=== PATIENT | male | born 1960 | race Caucasian/White ===

== ENCOUNTER 2022-02-23 13:47 | Inpatient (IN) | payer OTHER ==
[~2022-02-23] VITALS: Ht 193 cm; Wt 145.9 kg
[~2022-02-23 13:47] MED LIST: ALTA10CA3 PO; AMAR1TAB6 PO; ANOR1AER IN; ASPI81TA26 PO; ASPI81TA4 PO; BACTDSTA PO; BISO5TAB14 PO; BISO5TAB5 PO; BISO5TAB54 PO; CLON1TAB PO; CLON1TAB8 PO; DEPA500T2 PO; DEPAKOTE PO; DIVALPROEX PO; FLUO20CA22 PO; FLUO20CA8 PO; FLUR30CA PO; FOLI1TAB11 PO; GABA300C2 PO; GLIM4TAB PO; GLIM4TAB5 PO; HYDR-727 PO; HYDR50TA2 PO; HYDR50TAB PO; LACH12LO TOP; LAMO200T3 PO; LANTUS SC; MAGN400T35 PO; METF1000 PO; METF10004 PO; MULTTAB4 PO; NEOM28OI TOP; NICO21PAT TD; OMEP20CA3 PO; PRIL20CA PO; PROZ20CA11 PO; PROZ40CA PO; QUET50TA4 PO; RAMI10CA PO; RISP2TAB32 PO; RISP3TAB2 PO; SERO1TAB PO; SEROQUEL XR PO; SIMV10TA2 PO; SIMV10TA21 PO; TRAZ100T2 PO; TRAZ1TAB14 PO; VITMTA PO; ZOCO10TA PO; ZYPR10TA PO; [UNRECOGNIZED DRUG - OTHER] INH; [UNRECOGNIZED DRUG - OTHER] TOP; [UNRECOGNIZED DRUG - REMARK] PO; glucophage; glucophage PO; hctz PO
[2022-02-23 14:46] LABS: HEMATOCRIT 42.8 % (42.0-52.0); HEMOGLOBIN 14.9 g/dl (13.5-17.5); MEAN CORPUSCULAR HEMOGLOBIN 31.4 pg (27.0-33.0); MEAN CORPUSCULAR HGB CONC 34.8 g/dl (32.0-36.5); MEAN CORPUSCULAR VOLUME 90.3 fl (80.0-96.0); PLATELET COUNT, AUTOMATED 245 10^3/uL (150-450); RED BLOOD COUNT 4.74 10^6/uL (4.30-6.10); WHITE BLOOD COUNT 12.3 10^3/uL (4.0-10.0)
[2022-02-23 15:17] LABS: ACETAMINOPHEN LEVEL < 2.0 UG/ML (10.0-30.0); ALBUMIN 3.9 GM/DL (3.2-5.2); ALT/SGPT 29 U/L (12-78); BILIRUBIN,DIRECT < 0.1 MG/DL (0.0-0.2); BILIRUBIN,TOTAL 0.3 MG/DL (0.2-1.0); BLOOD UREA NITROGEN 18 MG/DL (7-18); CALCIUM LEVEL 9.7 MG/DL (8.8-10.2); CARBON DIOXIDE LEVEL 25 MEQ/L (21-32); CHLORIDE LEVEL 101 MEQ/L (98-107); CREATININE FOR GFR 1.28 MG/DL (0.70-1.30); ETHYL ALCOHOL (ETHANOL) < 0.003 % (0.000-0.010); GLOMERULAR FILTRATION RATE > 60.0 (>49); GLUCOSE, FASTING 107 MG/DL (70-100); POTASSIUM SERUM 4.6 MEQ/L (3.5-5.1); SALICYLATE LEVEL 4.3 MG/DL (5.0-30.0); SODIUM LEVEL 134 MEQ/L (136-145); TOTAL PROTEIN 7.4 GM/DL (6.4-8.2)
[2022-02-23 15:21] LABS: RSV AMPLIFICATION NEGATIVE (NEGATIVE)
[2022-02-23 15:26] LABS: AMPHETAMINES LEVEL URINE NEGATIVE (NEGATIVE); BARBITURATES URINE NEGATIVE (NEGATIVE); BENZODIAZEPINES URINE NEGATIVE (NEGATIVE); CANNABINOIDS URINE POSITIVE (NEGATIVE); COCAINE METABOLITE URINE NEGATIVE (NEGATIVE); METHADONE URINE NEGATIVE (NEGATIVE); OPIATES URINE NEGATIVE (NEGATIVE); PHENCYCLIDINE URINE NEGATIVE (NEGATIVE)
[2022-02-23] MEDS: INSULIN LISPRO (NovoLOG) PER UNIT SC SCH (17:30)
[2022-02-23] MEDS ORDERED: TRUL10IN SC (17:42)
[2022-02-23] MEDS ORDERED: METF-877 PO (17:42)
[2022-02-23] MEDS ORDERED: RISP-9 PO (17:42)
[2022-02-23] MEDS ORDERED: FURO20TA2 PO (17:42)
[2022-02-23] MEDS ORDERED: QUET100T2 PO (17:42)
[2022-02-23] MEDS ORDERED: KLON1TAB PO (17:42)
[2022-02-23] MEDS ORDERED: LISI40TA4 PO (17:42)
[2022-02-23] MEDS ORDERED: BASA100I SC (17:42)
[2022-02-23] MEDS ORDERED: SIMV20TA22 PO (17:42)
[2022-02-23] MEDS ORDERED: LAMI1TAB9 PO (17:42)
[2022-02-23] MEDS ORDERED: OMEP-173 PO (17:42)
[2022-02-23] MEDS ORDERED: OLANZapine ORAL DISINTEGRATING TAB 5MG PO ONE (20:05)
[2022-02-23] MEDS ORDERED: LORazepam 2 MG TAB PO ONE ×2 (20:30→22:50)
[2022-02-23] MEDS ORDERED: INSULIN LISPRO (NovoLOG) PER UNIT SC SCH (21:00)
[2022-02-23 21:18] LABS: AMPHETAMINES LEVEL URINE NEGATIVE (NEGATIVE); BARBITURATES URINE NEGATIVE (NEGATIVE); BENZODIAZEPINES URINE NEGATIVE (NEGATIVE); CANNABINOIDS URINE POSITIVE (NEGATIVE); COCAINE METABOLITE URINE NEGATIVE (NEGATIVE); METHADONE URINE NEGATIVE (NEGATIVE); OPIATES URINE NEGATIVE (NEGATIVE); PHENCYCLIDINE URINE NEGATIVE (NEGATIVE)
[2022-02-23] MEDS ORDERED: lisinopriL 40MG TAB PO ONE (22:50)
[2022-02-24] MEDS ORDERED: NICOTINE 21MG/24HR 1 EA TRANSDERMAL TD ONE (07:45)
[2022-02-24] MEDS ORDERED: metFORMIN (GLUCOPHAGE) 1000MG TABLET PO SCH (08:00)
[2022-02-24] MEDS ORDERED: OMEPRAZOLE 20MG CAP PO SCH (09:00)
[2022-02-24] MEDS ORDERED: QUEtiapine FUMARATE 100 MG TAB PO SCH (09:00)
[2022-02-24] MEDS ORDERED: risperiDONE 2 MG TAB PO SCH (09:00)
[2022-02-24] MEDS ORDERED: lisinopriL 40MG TAB PO SCH (09:00)
[2022-02-24] MEDS ORDERED: lamoTRIgine 100MG TAB PO SCH (09:00)
[2022-02-24] MEDS ORDERED: SIMVASTATIN 20 MG TAB PO SCH (09:00)
[2022-02-24] MEDS ORDERED: FUROSEMIDE 20 MG TAB PO SCH (09:00)
[2022-02-24] MEDS ORDERED: FLUoxetine 20MG CAP PO SCH (09:00)
[2022-02-24] MEDS ORDERED: bisoproloL fumarate 5 MG TAB PO SCH (09:00)
[2022-02-24] MEDS: INSULIN LISPRO (NovoLOG) PER UNIT SC SCH ×4 (09:17→21:00)
[2022-02-24] MEDS ORDERED: cloNIDine 0.2 MG TAB PO ONE (14:25)
[2022-02-24] MEDS ORDERED: MAALOX 30 ML SUSP *UDC PO PRN (15:00)
[2022-02-24] MEDS ORDERED: GLUCOSE 4GM CHEW TABLET PO PRN (15:00)
[2022-02-24] MEDS ORDERED: MOM 30ML SUSPENSION UDC PO PRN (15:00)
[2022-02-24] MEDS ORDERED: NICOTINE 21MG/24HR 1 EA TRANSDERMAL TD PRN (15:00)
[2022-02-24] MEDS ORDERED: traZODone 50 MG TAB PO PRN (15:00)
[2022-02-24] MEDS ORDERED: GLUCAGON INJ 1MG VIAL SC PRN (15:00)
[2022-02-24] MEDS ORDERED: LEVEMIR (INSULIN DETEMIR) 1 UNITS/0.01ML SC ONE (15:00)
[2022-02-24] MEDS ORDERED: clonazePAM 1 MG TAB PO PRN (15:20)
[2022-02-24] MEDS ORDERED: HOME MED LIST COMPLETE! XX SCH (16:15)
[2022-02-24] MEDS ORDERED: FLUO20CA22 PO (16:38)
[2022-02-24] MEDS: GLIMEPIRIDE 2 MG TAB PO SCH (17:30)
[2022-02-24 17:43] VITALS: BP 137/69
[2022-02-24] MEDS: metFORMIN (GLUCOPHAGE) 1000MG TABLET PO SCH (18:54)
[2022-02-24] MEDS: QUEtiapine FUMARATE 100 MG TAB PO SCH (21:35)
[2022-02-24] MEDS: risperiDONE 2 MG TAB PO SCH (21:35)
[2022-02-24] MEDS: lamoTRIgine 100MG TAB PO SCH (21:35)
[2022-02-24] MEDS: LEVEMIR (INSULIN DETEMIR) 1 UNITS/0.01ML SC SCH (21:44)
[2022-02-24] MEDS: FORMOTEROL FUMARATE 20 MCG/2 ML INHALATION SOLUTION (PERFOROMIST) INH SCH (22:00)
[2022-02-25 06:26] VITALS: BP 138/63
[2022-02-25] MEDS: GLIMEPIRIDE 2 MG TAB PO SCH ×2 (06:37→17:21)
[2022-02-25] MEDS: INSULIN LISPRO (NovoLOG) PER UNIT SC SCH ×4 (06:41→21:00)
[2022-02-25] MEDS: FORMOTEROL FUMARATE 20 MCG/2 ML INHALATION SOLUTION (PERFOROMIST) INH SCH ×2 (08:04→20:00)
[2022-02-25] MEDS ORDERED: hydroCHLOROthiazide 12.5 MG CAPSULE PO SCH (09:00)
[2022-02-25] MEDS: ASPIRIN 81MG ENTERIC TABLET PO SCH (09:24)
[2022-02-25] MEDS: FUROSEMIDE 20 MG TAB PO SCH (09:25)
[2022-02-25] MEDS: lamoTRIgine 100MG TAB PO SCH ×2 (09:25→21:25)
[2022-02-25] MEDS: FLUoxetine 20MG CAP PO SCH (09:25)
[2022-02-25] MEDS: OMEPRAZOLE 20MG CAP PO SCH (09:25)
[2022-02-25] MEDS: lisinopriL 40MG TAB PO SCH (09:25)
[2022-02-25] MEDS: QUEtiapine FUMARATE 100 MG TAB PO SCH ×2 (09:25→21:25)
[2022-02-25] MEDS: risperiDONE 2 MG TAB PO SCH ×2 (09:25→21:25)
[2022-02-25] MEDS: bisoproloL fumarate 5 MG TAB PO SCH (09:27)
[2022-02-25] MEDS: LEVEMIR (INSULIN DETEMIR) 1 UNITS/0.01ML SC SCH ×2 (09:29→21:25)
[2022-02-25] MEDS: metFORMIN (GLUCOPHAGE) 1000MG TABLET PO SCH ×2 (11:51→17:20)
[2022-02-25] MEDS: TIOTROPIUM INHALER/CAPSULE (SPIRIVA) INH SCH (11:51)
[2022-02-25 12:50] VITALS: BP 126/61
[2022-02-25] MEDS: QUEtiapine FUMARATE 50MG TAB PO SCH (14:23)
[2022-02-25 17:38] VITALS: BP 141/66
[2022-02-25 20:50] VITALS: BP 138/70
[2022-02-25] MEDS: SIMVASTATIN 20 MG TAB PO SCH (21:25)
[2022-02-26] MEDS: INSULIN LISPRO (NovoLOG) PER UNIT SC SCH ×4 (06:46→21:00)
[2022-02-26] MEDS: GLIMEPIRIDE 2 MG TAB PO SCH ×2 (06:46→17:08)
[2022-02-26 06:47] VITALS: BP 164/68
[2022-02-26] MEDS: TIOTROPIUM INHALER/CAPSULE (SPIRIVA) INH SCH (08:19)
[2022-02-26] MEDS: FORMOTEROL FUMARATE 20 MCG/2 ML INHALATION SOLUTION (PERFOROMIST) INH SCH ×2 (08:19→20:00)
[2022-02-26] MEDS: lamoTRIgine 100MG TAB PO SCH ×2 (10:08→21:00)
[2022-02-26] MEDS: metFORMIN (GLUCOPHAGE) 1000MG TABLET PO SCH ×2 (10:08→17:08)
[2022-02-26] MEDS: bisoproloL fumarate 5 MG TAB PO SCH (10:09)
[2022-02-26] MEDS: cloNIDine 0.1MG TABLET PO PRN (10:09)
[2022-02-26] MEDS: FUROSEMIDE 20 MG TAB PO SCH (10:11)
[2022-02-26] MEDS: lisinopriL 40MG TAB PO SCH (10:11)
[2022-02-26] MEDS: QUEtiapine FUMARATE 100 MG TAB PO SCH ×2 (10:12→21:00)
[2022-02-26] MEDS: OMEPRAZOLE 20MG CAP PO SCH (10:13)
[2022-02-26] MEDS: FLUoxetine 20MG CAP PO SCH (10:13)
[2022-02-26] MEDS: risperiDONE 2 MG TAB PO SCH ×2 (10:13→21:00)
[2022-02-26] MEDS: ASPIRIN 81MG ENTERIC TABLET PO SCH (10:13)
[2022-02-26] MEDS: LEVEMIR (INSULIN DETEMIR) 1 UNITS/0.01ML SC SCH ×2 (10:14→21:00)
[2022-02-26] MEDS: ACETAMINOPHEN TAB 650MG DOSE (2X325MG) PO PRN (10:33)
[2022-02-26] MEDS: QUEtiapine FUMARATE 50MG TAB PO SCH (14:43)
[2022-02-26] MEDS: SIMVASTATIN 20 MG TAB PO SCH (21:00)
[2022-02-27] MEDS: ACETAMINOPHEN TAB 650MG DOSE (2X325MG) PO PRN ×2 (02:50→22:09)
[2022-02-27 06:00] VITALS: BP 168/88
[2022-02-27] MEDS: GLIMEPIRIDE 2 MG TAB PO SCH ×2 (07:06→17:11)
[2022-02-27] MEDS: INSULIN LISPRO (NovoLOG) PER UNIT SC SCH ×4 (07:06→21:00)
[2022-02-27] MEDS: FORMOTEROL FUMARATE 20 MCG/2 ML INHALATION SOLUTION (PERFOROMIST) INH SCH ×2 (07:57→20:23)
[2022-02-27] MEDS: TIOTROPIUM INHALER/CAPSULE (SPIRIVA) INH SCH (09:45)
[2022-02-27] MEDS: LEVEMIR (INSULIN DETEMIR) 1 UNITS/0.01ML SC SCH ×2 (09:47→21:09)
[2022-02-27] MEDS: OMEPRAZOLE 20MG CAP PO SCH (09:47)
[2022-02-27] MEDS: risperiDONE 2 MG TAB PO SCH ×2 (09:48→21:08)
[2022-02-27] MEDS: QUEtiapine FUMARATE 100 MG TAB PO SCH ×2 (09:48→21:08)
[2022-02-27] MEDS: bisoproloL fumarate 5 MG TAB PO SCH (09:48)
[2022-02-27] MEDS: lamoTRIgine 100MG TAB PO SCH ×2 (09:48→21:08)
[2022-02-27] MEDS: FUROSEMIDE 20 MG TAB PO SCH (09:48)
[2022-02-27] MEDS: ASPIRIN 81MG ENTERIC TABLET PO SCH (09:48)
[2022-02-27] MEDS: lisinopriL 40MG TAB PO SCH (09:48)
[2022-02-27] MEDS: FLUoxetine 20MG CAP PO SCH (09:48)
[2022-02-27] MEDS: metFORMIN (GLUCOPHAGE) 1000MG TABLET PO SCH ×2 (09:49→17:10)
[2022-02-27] MEDS: QUEtiapine FUMARATE 50MG TAB PO SCH (13:55)
[2022-02-27 15:48] VITALS: BP 180/78
[2022-02-27] MEDS: cloNIDine 0.1MG TABLET PO PRN (15:50)
[2022-02-27 16:45] VITALS: BP 120/66
[2022-02-27] MEDS: SIMVASTATIN 20 MG TAB PO SCH (21:08)
[2022-02-27] MEDS: VANICREAM MOISTURIZING SKIN CREAM 113GM TUBE TOP PRN (21:10)
[2022-02-28] MEDS: INSULIN LISPRO (NovoLOG) PER UNIT SC SCH ×4 (06:41→20:25)
[2022-02-28] MEDS: GLIMEPIRIDE 2 MG TAB PO SCH ×2 (06:43→17:30)
[2022-02-28 06:51] VITALS: BP 136/65
[2022-02-28] MEDS: FORMOTEROL FUMARATE 20 MCG/2 ML INHALATION SOLUTION (PERFOROMIST) INH SCH ×2 (08:35→20:44)
[2022-02-28] MEDS: metFORMIN (GLUCOPHAGE) 1000MG TABLET PO SCH ×2 (09:57→18:00)
[2022-02-28] MEDS: TIOTROPIUM INHALER/CAPSULE (SPIRIVA) INH SCH (09:57)
[2022-02-28] MEDS: OMEPRAZOLE 20MG CAP PO SCH (09:58)
[2022-02-28] MEDS: FUROSEMIDE 20 MG TAB PO SCH (09:58)
[2022-02-28] MEDS: lisinopriL 40MG TAB PO SCH (09:58)
[2022-02-28] MEDS: ASPIRIN 81MG ENTERIC TABLET PO SCH (09:58)
[2022-02-28] MEDS: FLUoxetine 20MG CAP PO SCH (09:58)
[2022-02-28] MEDS: QUEtiapine FUMARATE 100 MG TAB PO SCH ×2 (09:59→20:17)
[2022-02-28] MEDS: risperiDONE 2 MG TAB PO SCH ×2 (09:59→20:16)
[2022-02-28] MEDS: LEVEMIR (INSULIN DETEMIR) 1 UNITS/0.01ML SC SCH ×2 (10:02→20:17)
[2022-02-28] MEDS: bisoproloL fumarate 5 MG TAB PO SCH (10:03)
[2022-02-28] MEDS: lamoTRIgine 100MG TAB PO SCH ×2 (10:03→20:17)
[2022-02-28] MEDS: VANICREAM MOISTURIZING SKIN CREAM 113GM TUBE TOP PRN (14:05)
[2022-02-28] MEDS: QUEtiapine FUMARATE 50MG TAB PO SCH (14:29)
[2022-02-28 16:53] VITALS: BP 131/61
[2022-02-28] MEDS: SIMVASTATIN 20 MG TAB PO SCH (20:17)
[2022-03-01] MEDS: ACETAMINOPHEN TAB 650MG DOSE (2X325MG) PO PRN ×2 (00:52→15:12)
[2022-03-01] MEDS: INSULIN LISPRO (NovoLOG) PER UNIT SC SCH ×4 (06:35→21:00)
[2022-03-01] MEDS: GLIMEPIRIDE 2 MG TAB PO SCH ×2 (06:36→17:56)
[2022-03-01 06:44] VITALS: BP 123/81
[2022-03-01] MEDS: TIOTROPIUM INHALER/CAPSULE (SPIRIVA) INH SCH (07:41)
[2022-03-01] MEDS: LEVEMIR (INSULIN DETEMIR) 1 UNITS/0.01ML SC SCH ×2 (07:42→21:20)
[2022-03-01] MEDS: bisoproloL fumarate 5 MG TAB PO SCH (07:43)
[2022-03-01] MEDS: OMEPRAZOLE 20MG CAP PO SCH (07:44)
[2022-03-01] MEDS: QUEtiapine FUMARATE 100 MG TAB PO SCH ×2 (07:44→21:19)
[2022-03-01] MEDS: metFORMIN (GLUCOPHAGE) 1000MG TABLET PO SCH ×2 (07:44→17:55)
[2022-03-01] MEDS: lamoTRIgine 100MG TAB PO SCH ×2 (07:44→21:19)
[2022-03-01] MEDS: FLUoxetine 20MG CAP PO SCH (07:44)
[2022-03-01] MEDS: FUROSEMIDE 20 MG TAB PO SCH (07:44)
[2022-03-01] MEDS: ASPIRIN 81MG ENTERIC TABLET PO SCH (07:45)
[2022-03-01] MEDS: risperiDONE 2 MG TAB PO SCH ×2 (07:45→21:19)
[2022-03-01] MEDS: lisinopriL 40MG TAB PO SCH (07:47)
[2022-03-01] MEDS: FORMOTEROL FUMARATE 20 MCG/2 ML INHALATION SOLUTION (PERFOROMIST) INH SCH ×2 (08:01→20:52)
[2022-03-01] MEDS ORDERED: diphenhydrAMINE 50MG CAP PO STA (13:02)
[2022-03-01] MEDS ORDERED: LORazepam 1 MG TAB PO STA (13:02)
[2022-03-01] MEDS: QUEtiapine FUMARATE 50MG TAB PO SCH (15:11)
[2022-03-01 16:56] VITALS: BP 153/69
[2022-03-01] MEDS: SIMVASTATIN 20 MG TAB PO SCH (21:19)
[2022-03-02] MEDS: ACETAMINOPHEN TAB 650MG DOSE (2X325MG) PO PRN (00:33)
[2022-03-02] MEDS: GLIMEPIRIDE 2 MG TAB PO SCH ×2 (06:32→17:30)
[2022-03-02] MEDS: INSULIN LISPRO (NovoLOG) PER UNIT SC SCH ×4 (06:36→20:32)
[2022-03-02 06:48] VITALS: BP 137/63
[2022-03-02] MEDS: FORMOTEROL FUMARATE 20 MCG/2 ML INHALATION SOLUTION (PERFOROMIST) INH SCH ×2 (08:30→20:00)
[2022-03-02] MEDS: FUROSEMIDE 20 MG TAB PO SCH (08:47)
[2022-03-02] MEDS: TIOTROPIUM INHALER/CAPSULE (SPIRIVA) INH SCH (08:47)
[2022-03-02] MEDS: ASPIRIN 81MG ENTERIC TABLET PO SCH (08:47)
[2022-03-02] MEDS: bisoproloL fumarate 5 MG TAB PO SCH (08:47)
[2022-03-02] MEDS: QUEtiapine FUMARATE 100 MG TAB PO SCH ×2 (08:47→20:33)
[2022-03-02] MEDS: OMEPRAZOLE 20MG CAP PO SCH (08:47)
[2022-03-02] MEDS: FLUoxetine 20MG CAP PO SCH (08:48)
[2022-03-02] MEDS: lisinopriL 40MG TAB PO SCH (08:48)
[2022-03-02] MEDS: metFORMIN (GLUCOPHAGE) 1000MG TABLET PO SCH ×2 (08:48→17:52)
[2022-03-02] MEDS: lamoTRIgine 100MG TAB PO SCH ×2 (08:48→20:34)
[2022-03-02] MEDS: risperiDONE 2 MG TAB PO SCH ×2 (08:48→20:33)
[2022-03-02] MEDS: LEVEMIR (INSULIN DETEMIR) 1 UNITS/0.01ML SC SCH ×2 (08:48→20:33)
[2022-03-02] MEDS: QUEtiapine FUMARATE 50MG TAB PO SCH (13:41)
[2022-03-02] MEDS ORDERED: LORazepam 1 MG TAB PO PRN (14:10)
[2022-03-02 18:14] VITALS: BP 155/84
[2022-03-02] MEDS: SIMVASTATIN 20 MG TAB PO SCH (20:34)
[2022-03-03] MEDS: GLIMEPIRIDE 2 MG TAB PO SCH ×2 (06:32→17:01)
[2022-03-03] MEDS: INSULIN LISPRO (NovoLOG) PER UNIT SC SCH ×4 (06:32→21:00)
[2022-03-03 06:42] VITALS: BP 154/70
[2022-03-03] MEDS: metFORMIN (GLUCOPHAGE) 1000MG TABLET PO SCH ×2 (07:49→17:00)
[2022-03-03] MEDS: lamoTRIgine 100MG TAB PO SCH ×2 (07:49→20:59)
[2022-03-03] MEDS: TIOTROPIUM INHALER/CAPSULE (SPIRIVA) INH SCH (07:49)
[2022-03-03] MEDS: LEVEMIR (INSULIN DETEMIR) 1 UNITS/0.01ML SC SCH ×2 (07:49→21:00)
[2022-03-03] MEDS: FLUoxetine 20MG CAP PO SCH (07:50)
[2022-03-03] MEDS: bisoproloL fumarate 5 MG TAB PO SCH (07:50)
[2022-03-03] MEDS: risperiDONE 2 MG TAB PO SCH ×2 (07:50→20:59)
[2022-03-03] MEDS: OMEPRAZOLE 20MG CAP PO SCH (07:50)
[2022-03-03] MEDS: FUROSEMIDE 20 MG TAB PO SCH (07:50)
[2022-03-03] MEDS: QUEtiapine FUMARATE 100 MG TAB PO SCH ×2 (07:51→20:59)
[2022-03-03] MEDS: lisinopriL 40MG TAB PO SCH (07:51)
[2022-03-03] MEDS: ASPIRIN 81MG ENTERIC TABLET PO SCH (07:52)
[2022-03-03] MEDS: FORMOTEROL FUMARATE 20 MCG/2 ML INHALATION SOLUTION (PERFOROMIST) INH SCH ×2 (08:30→21:25)
[2022-03-03] MEDS: QUEtiapine FUMARATE 50MG TAB PO SCH (13:17)
[2022-03-03 18:11] VITALS: BP 126/63
[2022-03-03] MEDS: SIMVASTATIN 20 MG TAB PO SCH (20:59)
[2022-03-04 06:25] VITALS: BP 142/72
[2022-03-04] MEDS: GLIMEPIRIDE 2 MG TAB PO SCH ×2 (06:34→17:04)
[2022-03-04] MEDS: INSULIN LISPRO (NovoLOG) PER UNIT SC SCH ×4 (06:34→20:13)
[2022-03-04] MEDS: FORMOTEROL FUMARATE 20 MCG/2 ML INHALATION SOLUTION (PERFOROMIST) INH SCH ×2 (08:48→21:12)
[2022-03-04] MEDS: FUROSEMIDE 20 MG TAB PO SCH (08:52)
[2022-03-04] MEDS: metFORMIN (GLUCOPHAGE) 1000MG TABLET PO SCH ×2 (08:52→17:04)
[2022-03-04] MEDS: bisoproloL fumarate 5 MG TAB PO SCH (08:52)
[2022-03-04] MEDS: ASPIRIN 81MG ENTERIC TABLET PO SCH (08:52)
[2022-03-04] MEDS: FLUoxetine 20MG CAP PO SCH (08:52)
[2022-03-04] MEDS: QUEtiapine FUMARATE 100 MG TAB PO SCH ×2 (08:52→20:12)
[2022-03-04] MEDS: LEVEMIR (INSULIN DETEMIR) 1 UNITS/0.01ML SC SCH ×2 (08:53→20:12)
[2022-03-04] MEDS: risperiDONE 2 MG TAB PO SCH ×2 (08:53→20:12)
[2022-03-04] MEDS: OMEPRAZOLE 20MG CAP PO SCH (08:53)
[2022-03-04] MEDS: lisinopriL 40MG TAB PO SCH (08:53)
[2022-03-04] MEDS: lamoTRIgine 100MG TAB PO SCH ×2 (08:53→20:12)
[2022-03-04] MEDS: TIOTROPIUM INHALER/CAPSULE (SPIRIVA) INH SCH (08:54)
[2022-03-04] MEDS: QUEtiapine FUMARATE 50MG TAB PO SCH (11:59)
[2022-03-04 18:24] VITALS: BP 125/59
[2022-03-04] MEDS: SIMVASTATIN 20 MG TAB PO SCH (20:12)
[2022-03-04] MEDS: ACETAMINOPHEN TAB 650MG DOSE (2X325MG) PO PRN (22:20)
[2022-03-05] MEDS: INSULIN LISPRO (NovoLOG) PER UNIT SC SCH ×4 (06:43→21:00)
[2022-03-05 06:57] VITALS: BP 121/80
[2022-03-05] MEDS: GLIMEPIRIDE 2 MG TAB PO SCH ×2 (07:07→21:05)
[2022-03-05] MEDS: lisinopriL 40MG TAB PO SCH (08:24)
[2022-03-05] MEDS: metFORMIN (GLUCOPHAGE) 1000MG TABLET PO SCH ×2 (08:24→17:19)
[2022-03-05] MEDS: TIOTROPIUM INHALER/CAPSULE (SPIRIVA) INH SCH (08:24)
[2022-03-05] MEDS: ASPIRIN 81MG ENTERIC TABLET PO SCH (08:24)
[2022-03-05] MEDS: FLUoxetine 20MG CAP PO SCH (08:24)
[2022-03-05] MEDS: bisoproloL fumarate 5 MG TAB PO SCH (08:24)
[2022-03-05] MEDS: lamoTRIgine 100MG TAB PO SCH ×2 (08:24→21:05)
[2022-03-05] MEDS: risperiDONE 2 MG TAB PO SCH ×2 (08:24→21:06)
[2022-03-05] MEDS: QUEtiapine FUMARATE 100 MG TAB PO SCH ×2 (08:24→21:06)
[2022-03-05] MEDS: OMEPRAZOLE 20MG CAP PO SCH (08:24)
[2022-03-05] MEDS: LEVEMIR (INSULIN DETEMIR) 1 UNITS/0.01ML SC SCH ×2 (08:25→21:07)
[2022-03-05] MEDS: FUROSEMIDE 20 MG TAB PO SCH (08:28)
[2022-03-05] MEDS: FORMOTEROL FUMARATE 20 MCG/2 ML INHALATION SOLUTION (PERFOROMIST) INH SCH ×2 (09:31→20:00)
[2022-03-05] MEDS: QUEtiapine FUMARATE 50MG TAB PO SCH (13:18)
[2022-03-05 18:54] VITALS: BP 168/70
[2022-03-05] MEDS: SIMVASTATIN 20 MG TAB PO SCH (21:06)
[2022-03-05] MEDS: ACETAMINOPHEN TAB 650MG DOSE (2X325MG) PO PRN (21:46)
[2022-03-06] MEDS: GLIMEPIRIDE 2 MG TAB PO SCH (06:32)
[2022-03-06] MEDS: INSULIN LISPRO (NovoLOG) PER UNIT SC SCH (06:32)
[2022-03-06 06:47] VITALS: BP 139/71
[2022-03-06] MEDS ORDERED: QUET100T2 PO (08:11)
[2022-03-06] MEDS ORDERED: QUET50TA4 PO (08:11)
[2022-03-06] MEDS: FORMOTEROL FUMARATE 20 MCG/2 ML INHALATION SOLUTION (PERFOROMIST) INH SCH (08:21)
[2022-03-06] MEDS: OMEPRAZOLE 20MG CAP PO SCH (09:28)
[2022-03-06] MEDS: ASPIRIN 81MG ENTERIC TABLET PO SCH (09:28)
[2022-03-06] MEDS: QUEtiapine FUMARATE 100 MG TAB PO SCH (09:28)
[2022-03-06] MEDS: FUROSEMIDE 20 MG TAB PO SCH (09:28)
[2022-03-06] MEDS: lamoTRIgine 100MG TAB PO SCH (09:28)
[2022-03-06 09:29] VITALS: BP 139/71
[2022-03-06] MEDS: metFORMIN (GLUCOPHAGE) 1000MG TABLET PO SCH (09:29)
[2022-03-06] MEDS: bisoproloL fumarate 5 MG TAB PO SCH (09:29)
[2022-03-06] MEDS: risperiDONE 2 MG TAB PO SCH (09:29)
[2022-03-06] MEDS: lisinopriL 40MG TAB PO SCH (09:29)
[2022-03-06] MEDS: FLUoxetine 20MG CAP PO SCH (09:29)
[2022-03-06] MEDS: LEVEMIR (INSULIN DETEMIR) 1 UNITS/0.01ML SC SCH (09:30)
[2022-03-06] MEDS: TIOTROPIUM INHALER/CAPSULE (SPIRIVA) INH SCH (09:32)
== END 2022-03-06 11:07 | disposition home or self-care (01) | DRG 753 ==
LOC: M ED 13:47 → EDBD 13:47 → M ED 02-24 17:24 → EEVIPCON 02-24 18:03 → M PSY 02-24 18:03
PROVIDERS: ADMIT Psychiatry & Neurology Psychiatry; ATTEND Psychiatry & Neurology Psychiatry
DX: F31.9 Bipolar disorder, unspecified (principal); E11.9 Type 2 diabetes mellitus without complications; I10 Essential (primary) hypertension; F17.200 Nicotine dependence, unspecified, uncomplicated; Z79.82 Long term (current) use of aspirin; Z79.84 Long term (current) use of oral hypoglycemic drugs; Z79.899 Other long term (current) drug therapy; Z79.4 Long term (current) use of insulin; Z88.8 Allergy status to other drugs, medicaments and biological substances; Z20.822 Contact with and (suspected) exposure to COVID-19; Z63.5 Disruption of family by separation and divorce; K21.9 Gastro-esophageal reflux disease without esophagitis; E78.5 Hyperlipidemia, unspecified; I87.8 Other specified disorders of veins; Z90.49 Acquired absence of other specified parts of digestive tract; D72.829 Elevated white blood cell count, unspecified

== ENCOUNTER 2023-03-15 11:13 | Inpatient (IN) | payer OTHER ==
[~2023-03-15] VITALS: Ht 193 cm; Wt 118.2 kg
[~2023-03-15 11:13] MED LIST changes: +BASA100I SC; +FURO20TA2 PO; +KLON1TAB PO; +LAMI1TAB9 PO; +LISI40TA4 PO; +METF-877 PO; +OMEP-173 PO; +QUET100T2 PO; +RISP-9 PO; +SIMV20TA22 PO; +TRUL10IN SC
[2023-03-15 12:27] LABS: AMPHETAMINES LEVEL URINE NEGATIVE (NEGATIVE); BARBITURATES URINE NEGATIVE (NEGATIVE)
[2023-03-15 12:28] LABS: BENZODIAZEPINES URINE NEGATIVE (NEGATIVE); COCAINE METABOLITE URINE NEGATIVE (NEGATIVE); METHADONE URINE NEGATIVE (NEGATIVE); OPIATES URINE NEGATIVE (NEGATIVE); PHENCYCLIDINE URINE NEGATIVE (NEGATIVE)
[2023-03-15 12:37] LABS: ETHYL ALCOHOL (ETHANOL) 0.003 % (0.000-0.010)
[2023-03-15 12:38] LABS: ACETAMINOPHEN LEVEL < 2.0 UG/ML (10.0-20.0)
[2023-03-15 12:39] LABS: ALBUMIN 3.5 G/DL (3.2-5.2); ALKALINE PHOSPHATASE 68 U/L (46-116); ALT/SGPT 24 U/L (7.0-40); AST/SGOT 13 U/L (<34); BILIRUBIN,DIRECT < 0.1 MG/DL (<0.4); BILIRUBIN,TOTAL 0.2 MG/DL (0.3-1.2); BLOOD UREA NITROGEN 27 MG/DL (9-23); CALCIUM LEVEL 9.2 MG/DL (8.3-10.6); CANNABINOIDS URINE POSITIVE (NEGATIVE); CARBON DIOXIDE LEVEL 22 MMOL/L (20-31); CHLORIDE LEVEL 100 MMOL/L (98-107); CREATININE FOR GFR 2.09 MG/DL (0.70-1.30); GLOMERULAR FILTRATION RATE 34.3 (>49); GLUCOSE, FASTING 211 MG/DL (74-106); POTASSIUM SERUM 4.7 MMOL/L (3.5-5.1); SALICYLATE LEVEL < 3.0 MG/DL (<30); SODIUM LEVEL 133 MMOL/L (136-145); TOTAL PROTEIN 6.8 G/DL (5.7-8.2)
[2023-03-15 12:41] LABS: THYROID STIMULATING HORMONE 2.617 uIU/ML (0.55-4.78)
[2023-03-15 12:58] LABS: HEMATOCRIT 37.6 % (42.0-52.0); HEMOGLOBIN 12.5 g/dl (13.5-17.5); MEAN CORPUSCULAR HEMOGLOBIN 30.2 pg (27.0-33.0); MEAN CORPUSCULAR HGB CONC 33.2 g/dl (32.0-36.5); MEAN CORPUSCULAR VOLUME 90.8 fl (80.0-96.0); PLATELET COUNT, AUTOMATED 262 10^3/uL (150-450); RED BLOOD COUNT 4.14 10^6/uL (4.30-6.10); WHITE BLOOD COUNT 11.5 10^3/uL (4.0-10.0)
[2023-03-15] MEDS ORDERED: LORazepam 2 MG TAB PO ONE (23:45)
[2023-03-16] MEDS ORDERED: MED REC CURRENTLY UNOBTAINABLE XX SCH (05:30)
[2023-03-16] MEDS ORDERED: MIDAZOLAM INJ 2MG/2ML VIAL IM ONE (06:30)
[2023-03-16] MEDS ORDERED: HALOPERIDOL 5MG/ML 1ML VIAL IM ONE ×2 (06:30→11:25)
[2023-03-16] MEDS ORDERED: diphenhydrAMINE 50MG/ML VIAL IM ONE (06:30)
[2023-03-16] MEDS: LORazepam 2 MG TAB PO ONE ×2 (08:58→12:13)
[2023-03-16 09:24] LABS: CALCIUM LEVEL 9.5 MG/DL (8.3-10.6); CREATININE FOR GFR 1.33 MG/DL (0.70-1.30); GLOMERULAR FILTRATION RATE 57.8 (>49); POTASSIUM SERUM 4.9 MMOL/L (3.5-5.1)
[2023-03-16] MEDS ORDERED: LORazepam 2 MG/ML 1ML VIAL IM STA (11:22)
[2023-03-16] MEDS ORDERED: HOME MED LIST COMPLETE! XX SCH (21:00)
[2023-03-16] MEDS ORDERED: LORazepam 2 MG TAB PO ONE (22:05)
[2023-03-16] MEDS ORDERED: QUEtiapine FUMARATE 200 MG TAB PO ONE (22:05)
[2023-03-17] MEDS ORDERED: ACETAMINOPHEN TAB 650MG DOSE (2X325MG) PO ONE ×2 (02:25→04:05)
[2023-03-17] MEDS ORDERED: OLANZapine ORAL DISINTEGRATING TAB 5MG PO ONE (11:10)
[2023-03-17] MEDS ORDERED: MAALOX 30 ML SUSP *UDC PO PRN (13:05)
[2023-03-17] MEDS ORDERED: diphenhydrAMINE 25MG CAP PO PRN (13:05)
[2023-03-17] MEDS ORDERED: MOM 30ML SUSPENSION UDC PO PRN (13:05)
[2023-03-17] MEDS ORDERED: IBUPROFEN 400MG TAB PO PRN (13:05)
[2023-03-17 18:32] VITALS: BP 139/76; TEMP 97; O2SAT 97
[2023-03-18 07:09] VITALS: BP 121/69; TEMP 97; O2SAT 96
[2023-03-18] MEDS ORDERED: GLUCOSE 4GM CHEW TABLET PO PRN (12:50)
[2023-03-18] MEDS ORDERED: ASPIRIN 81MG CHEW TABLET PO ONE (12:50)
[2023-03-18] MEDS ORDERED: GLUCAGON INJ 1MG VIAL SC PRN (12:50)
[2023-03-18] MEDS ORDERED: OMEPRAZOLE 20MG CAP PO ONE (12:50)
[2023-03-18] MEDS ORDERED: bisoproloL fumarate 5 MG TAB PO ONE (12:50)
[2023-03-18] MEDS ORDERED: DEXTROSE 50% 50ML SYRINGE IV PRN (12:50)
[2023-03-18 13:26] LABS: BASO % 0.2 % (0.0-1.0); EOS # 0.2 10^3/uL (0.0-0.5); EOS % 2.6 % (0.0-3.0); HEMATOCRIT 39.1 % (42.0-52.0); HEMOGLOBIN 13.4 g/dl (13.5-17.5); LYMPH # 2.3 10^3/uL (1.5-5.0); MEAN CORPUSCULAR HEMOGLOBIN 30.4 pg (27.0-33.0); MEAN CORPUSCULAR HGB CONC 34.3 g/dl (32.0-36.5); MEAN CORPUSCULAR VOLUME 88.7 fl (80.0-96.0); MONO # 0.9 10^3/uL (0.0-0.8); MONO % 9.2 % (2.0-8.0); NEUTROPHILS % 63.5 % (36.0-66.0); PLATELET COUNT, AUTOMATED 231 10^3/uL (150-450); RED BLOOD COUNT 4.41 10^6/uL (4.30-6.10); WHITE BLOOD COUNT 9.4 10^3/uL (4.0-10.0)
[2023-03-18 13:45] LABS: ERYTHROCYTE SEDIMENTATION RATE 35 mm/hr (0-20)
[2023-03-18 13:56] LABS: BLOOD UREA NITROGEN 19 MG/DL (9-23); CALCIUM LEVEL 9.1 MG/DL (8.3-10.6); CARBON DIOXIDE LEVEL 26 MMOL/L (20-31); CHLORIDE LEVEL 96 MMOL/L (98-107); CREATININE FOR GFR 1.17 MG/DL (0.70-1.30); GLOMERULAR FILTRATION RATE > 60.0 (>49); GLUCOSE, FASTING 297 MG/DL (74-106); POTASSIUM SERUM 4.9 MMOL/L (3.5-5.1); SODIUM LEVEL 130 MMOL/L (136-145)
[2023-03-18 13:57] VITALS: BP 182/90
[2023-03-18 13:57] LABS: ALBUMIN 3.6 G/DL (3.2-5.2); BILIRUBIN,DIRECT 0.2 MG/DL (<0.4); BILIRUBIN,TOTAL 0.4 MG/DL (0.3-1.2); TOTAL PROTEIN 6.9 G/DL (5.7-8.2)
[2023-03-18] MEDS: INSULIN LISPRO (NovoLOG) PER UNIT SC SCH ×3 (13:57→20:14)
[2023-03-18 13:58] LABS: HEMOGLOBIN A1c 7.1 % (4.0-6.0)
[2023-03-18 14:04] LABS: PROCALCITONIN 0.1 ng/ml
[2023-03-18] MEDS ORDERED: lamoTRIgine 25MG TAB PO ONE (16:35)
[2023-03-18] MEDS: QUEtiapine FUMARATE 100 MG TAB PO SCH ×2 (17:12→20:14)
[2023-03-18 18:38] VITALS: BP 136/68; TEMP 96.6; O2SAT 95
[2023-03-18] MEDS: clonazePAM 1 MG TAB PO SCH (20:13)
[2023-03-18] MEDS: SIMVASTATIN 20 MG TAB PO SCH (20:14)
[2023-03-18] MEDS: risperiDONE 1 MG TAB PO SCH (20:14)
[2023-03-18] MEDS: VANICREAM MOISTURIZING SKIN CREAM 113GM TUBE TOP SCH (20:59)
[2023-03-18] MEDS ORDERED: LEVEMIR (INSULIN DETEMIR) 1 UNITS/0.01ML SC SCH (21:00)
[2023-03-18] MEDS ORDERED: LEVEMIR (INSULIN DETEMIR) 1 UNITS/0.01ML SC ONE (21:40)
[2023-03-19] MEDS: INSULIN LISPRO (NovoLOG) PER UNIT SC SCH ×4 (06:37→20:41)
[2023-03-19 06:52] VITALS: BP 105/59; TEMP 97.7; O2SAT 95
[2023-03-19 07:15] LABS: BLOOD UREA NITROGEN 21 MG/DL (9-23); CALCIUM LEVEL 8.3 MG/DL (8.3-10.6); CARBON DIOXIDE LEVEL 25 MMOL/L (20-31); CHLORIDE LEVEL 96 MMOL/L (98-107); CREATININE FOR GFR 1.17 MG/DL (0.70-1.30); GLOMERULAR FILTRATION RATE > 60.0 (>49); GLUCOSE, FASTING 318 MG/DL (74-106); POTASSIUM SERUM 4.6 MMOL/L (3.5-5.1); SODIUM LEVEL 127 MMOL/L (136-145)
[2023-03-19 08:29] VITALS: BP 105/51
[2023-03-19] MEDS: ASPIRIN 81MG CHEW TABLET PO SCH (08:29)
[2023-03-19] MEDS: risperiDONE 1 MG TAB PO SCH (08:29)
[2023-03-19] MEDS: QUEtiapine FUMARATE 100 MG TAB PO SCH (08:30)
[2023-03-19] MEDS: lamoTRIgine 25MG TAB PO SCH (08:30)
[2023-03-19] MEDS: OMEPRAZOLE 20MG CAP PO SCH (08:30)
[2023-03-19] MEDS: LEVEMIR (INSULIN DETEMIR) 1 UNITS/0.01ML SC SCH ×2 (08:31→20:41)
[2023-03-19] MEDS: bisoproloL fumarate 5 MG TAB PO SCH (09:00)
[2023-03-19 10:34] VITALS: BP 117/57
[2023-03-19 20:31] VITALS: BP 136/79; TEMP 96.7
[2023-03-19 20:33] VITALS: BP 136/79; TEMP 96.7; O2SAT 95
[2023-03-19] MEDS: QUEtiapine FUMARATE 200 MG TAB PO SCH (20:34)
[2023-03-19] MEDS: clonazePAM 1 MG TAB PO SCH (20:34)
[2023-03-19] MEDS: SIMVASTATIN 20 MG TAB PO SCH (20:34)
[2023-03-19] MEDS: risperiDONE 2 MG TAB PO SCH (20:34)
[2023-03-19] MEDS: VANICREAM MOISTURIZING SKIN CREAM 113GM TUBE TOP SCH (20:42)
[2023-03-20 06:12] VITALS: BP 117/57; TEMP 96.2; O2SAT 97
[2023-03-20] MEDS: INSULIN LISPRO (NovoLOG) PER UNIT SC SCH ×4 (06:52→21:26)
[2023-03-20] MEDS: QUEtiapine FUMARATE 200 MG TAB PO SCH ×2 (08:18→21:21)
[2023-03-20] MEDS: risperiDONE 2 MG TAB PO SCH ×2 (08:18→21:21)
[2023-03-20] MEDS: lamoTRIgine 25MG TAB PO SCH (08:19)
[2023-03-20] MEDS: bisoproloL fumarate 5 MG TAB PO SCH ×2 (08:19→09:00)
[2023-03-20] MEDS: ASPIRIN 81MG CHEW TABLET PO SCH (08:19)
[2023-03-20] MEDS: OMEPRAZOLE 20MG CAP PO SCH (08:20)
[2023-03-20] MEDS: LEVEMIR (INSULIN DETEMIR) 1 UNITS/0.01ML SC SCH ×2 (08:21→21:26)
[2023-03-20 16:28] VITALS: BP 135/61; TEMP 97.4; O2SAT 99
[2023-03-20] MEDS: VANICREAM MOISTURIZING SKIN CREAM 113GM TUBE TOP SCH (21:20)
[2023-03-20] MEDS: SIMVASTATIN 20 MG TAB PO SCH (21:21)
[2023-03-20] MEDS: clonazePAM 1 MG TAB PO SCH (21:21)
[2023-03-21 06:21] VITALS: BP 125/61; TEMP 96.5; O2SAT 95
[2023-03-21] MEDS: INSULIN LISPRO (NovoLOG) PER UNIT SC SCH ×4 (06:44→20:36)
[2023-03-21] MEDS: ASPIRIN 81MG CHEW TABLET PO SCH (08:39)
[2023-03-21] MEDS: lamoTRIgine 25MG TAB PO SCH (08:39)
[2023-03-21] MEDS: QUEtiapine FUMARATE 200 MG TAB PO SCH ×2 (08:39→20:38)
[2023-03-21] MEDS: risperiDONE 2 MG TAB PO SCH ×2 (08:39→20:38)
[2023-03-21] MEDS: OMEPRAZOLE 20MG CAP PO SCH (08:39)
[2023-03-21] MEDS: LEVEMIR (INSULIN DETEMIR) 1 UNITS/0.01ML SC SCH ×2 (08:40→20:42)
[2023-03-21] MEDS: bisoproloL fumarate 5 MG TAB PO SCH (08:47)
[2023-03-21] MEDS: QUEtiapine FUMARATE 100 MG TAB PO SCH (12:18)
[2023-03-21] MEDS: ACETAMINOPHEN TAB 650MG DOSE (2X325MG) PO PRN ×2 (12:39→21:53)
[2023-03-21 17:09] VITALS: BP 141/64; TEMP 96.4
[2023-03-21] MEDS: clonazePAM 1 MG TAB PO SCH (20:37)
[2023-03-21] MEDS: SIMVASTATIN 20 MG TAB PO SCH (20:38)
[2023-03-21] MEDS: VANICREAM MOISTURIZING SKIN CREAM 113GM TUBE TOP SCH (20:38)
[2023-03-22] MEDS: INSULIN LISPRO (NovoLOG) PER UNIT SC SCH ×2 (06:39→11:59)
[2023-03-22 06:51] VITALS: BP 142/56; TEMP 96.4; O2SAT 98
[2023-03-22] MEDS: bisoproloL fumarate 5 MG TAB PO SCH (07:45)
[2023-03-22 07:49] VITALS: BP 135/64
[2023-03-22] MEDS: ASPIRIN 81MG CHEW TABLET PO SCH (07:49)
[2023-03-22] MEDS: QUEtiapine FUMARATE 200 MG TAB PO SCH (07:49)
[2023-03-22] MEDS: OMEPRAZOLE 20MG CAP PO SCH (07:49)
[2023-03-22] MEDS: LEVEMIR (INSULIN DETEMIR) 1 UNITS/0.01ML SC SCH (07:50)
[2023-03-22] MEDS: lamoTRIgine 25MG TAB PO SCH (07:50)
[2023-03-22] MEDS: risperiDONE 2 MG TAB PO SCH (07:50)
[2023-03-22 10:00] LABS: IONIZED CALCIUM 4.6 MG/DL (4.5-5.3)
[2023-03-22] MEDS ORDERED: FUROSEMIDE 40 MG TAB PO ONE (10:00)
[2023-03-22 10:28] LABS: BLOOD UREA NITROGEN 23 MG/DL (9-23); CALCIUM LEVEL 8.4 MG/DL (8.3-10.6); CARBON DIOXIDE LEVEL 24 MMOL/L (20-31); CHLORIDE LEVEL 94 MMOL/L (98-107); CREATININE FOR GFR 1.01 MG/DL (0.70-1.30); GLOMERULAR FILTRATION RATE > 60.0 (>49); GLUCOSE, FASTING 303 MG/DL (74-106); MAGNESIUM LEVEL 1.4 MG/DL (1.8-2.4); POTASSIUM SERUM 5.1 MMOL/L (3.5-5.1); SODIUM LEVEL 123 MMOL/L (136-145)
[2023-03-22 10:29] LABS: CK-MB VALUE MASS 4.1 NG/ML (<3.6)
[2023-03-22 10:30] LABS: MB/CK RELATIVE INDEX 1.87 (< OR =4)
[2023-03-22 10:45] LABS: OSMOLALITY SERUM 278 MOSM/KG (280-301)
[2023-03-22] MEDS: QUEtiapine FUMARATE 100 MG TAB PO SCH (12:32)
[2023-03-22] MEDS ORDERED: INSUDET SC (13:19)
[2023-03-22] MEDS ORDERED: AMLO1TAB25 PO (13:19)
[2023-03-22] MEDS ORDERED: GLUC1INJ21 SC (13:19)
[2023-03-22] MEDS ORDERED: QUET200T2 PO (13:19)
[2023-03-22] MEDS ORDERED: ASPI81CH8 PO (13:19)
[2023-03-22] MEDS ORDERED: VANI1CRE5 TOP (13:19)
[2023-03-22] MEDS ORDERED: CLON1TAB8 PO (13:19)
[2023-03-22] MEDS ORDERED: HALO5TAB33 PO (13:19)
[2023-03-22] MEDS ORDERED: SIMV20TA22 PO (13:19)
[2023-03-22] MEDS ORDERED: QUET100T2 PO (13:19)
[2023-03-22] MEDS ORDERED: OMEP-173 PO (13:19)
[2023-03-22] MEDS ORDERED: LAMI25TA PO (13:19)
[2023-03-22] MEDS ORDERED: BISO5TAB14 PO (13:19)
[2023-03-22] MEDS ORDERED: INSUHUMDS SC ×2 (13:19)
[2023-03-22] MEDS ORDERED: RISP-9 PO (13:19)
[2023-03-23] MEDS ORDERED: BISO5TAB14 PO (05:29)
[2023-03-23] MEDS ORDERED: ASPI-655 PO (05:29)
[2023-03-23] MEDS ORDERED: AMLO1TAB25 PO (05:29)
[2023-03-23] MEDS ORDERED: VANI1CRE5 EXT (05:29)
[2023-03-23] MEDS ORDERED: GLUC1VIA SC (05:29)
[2023-03-23] MEDS ORDERED: CLON1TAB8 PO (05:29)
[2023-03-23] MEDS ORDERED: HALO5TAB33 PO (05:29)
[2023-03-23] MEDS ORDERED: INSUDET SC (05:34)
[2023-03-23] MEDS ORDERED: QUET100T2 PO (05:43)
[2023-03-23] MEDS ORDERED: OMEP-173 PO (05:43)
[2023-03-23] MEDS ORDERED: LAMO25TA4 PO (05:43)
[2023-03-23] MEDS ORDERED: NOVOINJ SC (05:43)
[2023-03-23] MEDS ORDERED: SIMV20TA22 PO (05:43)
[2023-03-23] MEDS ORDERED: RISP-9 PO (05:43)
[2023-03-23] MEDS ORDERED: QUET200T2 PO (05:43)
== END 2023-03-22 14:25 | disposition short-term general hospital (02) | DRG 753 ==
LOC: M ED 11:13 → M ED INP 03-17 13:03 → M PSY 03-17 16:35
PROVIDERS: ADMIT Student in an Organized Health Care Education/Training Program; ATTEND Student in an Organized Health Care Education/Training Program
DX: F31.10 Bipolar disorder, current episode manic without psychotic features, unspecified (principal); F12.10 Cannabis abuse, uncomplicated; F17.210 Nicotine dependence, cigarettes, uncomplicated; E11.9 Type 2 diabetes mellitus without complications; E78.5 Hyperlipidemia, unspecified; K21.9 Gastro-esophageal reflux disease without esophagitis; I87.8 Other specified disorders of veins; I10 Essential (primary) hypertension; Z81.8 Family history of other mental and behavioral disorders; Z88.8 Allergy status to other drugs, medicaments and biological substances; Z20.822 Contact with and (suspected) exposure to COVID-19; Z90.49 Acquired absence of other specified parts of digestive tract; Z79.84 Long term (current) use of oral hypoglycemic drugs; Z79.82 Long term (current) use of aspirin; Z79.899 Other long term (current) drug therapy

== ENCOUNTER 2023-03-25 16:35 | Inpatient (IN) | payer OTHER ==
[~2023-03-25] VITALS: Ht 193 cm; Wt 127.0 kg
[~2023-03-25 16:35] MED LIST changes: +AMLO1TAB25 PO; +ASPI-655 PO; +ASPI81CH8 PO; +FURO40TA2 PO; +GLUC1INJ21 SC; +GLUC1VIA SC; +HALO5TAB33 PO; +INSUDET SC; +INSUHUMDS SC; +LAMI25TA PO; +LAMO25TA4 PO; +NOVOINJ SC; +QUET200T2 PO; +VANI1CRE5 EXT; +VANI1CRE5 TOP
[2023-03-26] MEDS ORDERED: IBUPROFEN 400MG TAB PO PRN (11:40)
[2023-03-26] MEDS ORDERED: traZODone 50 MG TAB PO PRN (11:40)
[2023-03-26] MEDS ORDERED: MOM 30ML SUSPENSION UDC PO PRN (11:40)
[2023-03-26] MEDS ORDERED: MAALOX 30 ML SUSP *UDC PO PRN (11:40)
[2023-03-26 19:09] VITALS: BP 134/61; TEMP 97.8; O2SAT 96
[2023-03-26] MEDS: VANICREAM MOISTURIZING SKIN CREAM 113GM TUBE TOP SCH (21:00)
[2023-03-26] MEDS ORDERED: INSULIN LISPRO (NovoLOG) PER UNIT SC SCH (21:00)
[2023-03-26] MEDS: INSULIN LISPRO (NovoLOG) PER UNIT SC SCH (21:41)
[2023-03-26] MEDS: LEVEMIR (INSULIN DETEMIR) 1 UNITS/0.01ML SC SCH (21:42)
[2023-03-26] MEDS: DOXYCYCLINE HYCLATE 100MG TABLET PO SCH (21:42)
[2023-03-26] MEDS: QUEtiapine FUMARATE 200 MG TAB PO SCH (21:42)
[2023-03-26] MEDS: SIMVASTATIN 20 MG TAB PO SCH (21:42)
[2023-03-26] MEDS: clonazePAM 1 MG TAB PO SCH (21:42)
[2023-03-26] MEDS: risperiDONE 2 MG TAB PO SCH (21:42)
[2023-03-27] MEDS: ACETAMINOPHEN TAB 650MG DOSE (2X325MG) PO PRN (04:04)
[2023-03-27] MEDS: INSULIN LISPRO (NovoLOG) PER UNIT SC SCH ×7 (06:37→20:49)
[2023-03-27 06:46] VITALS: BP 139/78; TEMP 96.7; O2SAT 98
[2023-03-27] MEDS ORDERED: FUROSEMIDE 40 MG TAB PO SCH (09:00)
[2023-03-27] MEDS ORDERED: HOME MED LIST COMPLETE! XX SCH (09:00)
[2023-03-27] MEDS: LEVEMIR (INSULIN DETEMIR) 1 UNITS/0.01ML SC SCH ×2 (09:33→20:49)
[2023-03-27] MEDS: risperiDONE 2 MG TAB PO SCH ×2 (09:38→20:48)
[2023-03-27] MEDS: bisoproloL fumarate 5 MG TAB PO SCH (09:38)
[2023-03-27] MEDS: ASPIRIN 81MG CHEW TABLET PO SCH (09:38)
[2023-03-27] MEDS: DOXYCYCLINE HYCLATE 100MG TABLET PO SCH ×2 (09:39→20:48)
[2023-03-27] MEDS: lamoTRIgine 25MG TAB PO SCH (09:39)
[2023-03-27] MEDS: OMEPRAZOLE 20MG CAP PO SCH (09:39)
[2023-03-27] MEDS: QUEtiapine FUMARATE 200 MG TAB PO SCH ×2 (09:39→20:48)
[2023-03-27] MEDS: amLODIPine 5 MG TAB PO SCH (09:39)
[2023-03-27] MEDS: QUEtiapine FUMARATE 100 MG TAB PO SCH (12:12)
[2023-03-27] MEDS: SIMVASTATIN 20 MG TAB PO SCH (20:48)
[2023-03-27] MEDS: clonazePAM 1 MG TAB PO SCH (20:48)
[2023-03-27] MEDS: VANICREAM MOISTURIZING SKIN CREAM 113GM TUBE TOP SCH (20:49)
[2023-03-28 06:32] VITALS: BP 128/74; TEMP 97.2; O2SAT 98
[2023-03-28] MEDS: INSULIN LISPRO (NovoLOG) PER UNIT SC SCH ×7 (06:52→20:30)
[2023-03-28] MEDS ORDERED: FUROSEMIDE 20 MG TAB PO SCH (09:00)
[2023-03-28] MEDS: ASPIRIN 81MG CHEW TABLET PO SCH (09:46)
[2023-03-28] MEDS: OMEPRAZOLE 20MG CAP PO SCH (09:46)
[2023-03-28] MEDS: QUEtiapine FUMARATE 200 MG TAB PO SCH ×2 (09:46→20:29)
[2023-03-28] MEDS: risperiDONE 2 MG TAB PO SCH ×2 (09:46→20:29)
[2023-03-28] MEDS: DOXYCYCLINE HYCLATE 100MG TABLET PO SCH ×2 (09:46→20:29)
[2023-03-28] MEDS: lamoTRIgine 25MG TAB PO SCH (09:47)
[2023-03-28] MEDS: LEVEMIR (INSULIN DETEMIR) 1 UNITS/0.01ML SC SCH ×2 (09:48→20:33)
[2023-03-28] MEDS: bisoproloL fumarate 5 MG TAB PO SCH (09:53)
[2023-03-28] MEDS: amLODIPine 5 MG TAB PO SCH (09:53)
[2023-03-28] MEDS: QUEtiapine FUMARATE 100 MG TAB PO SCH (11:57)
[2023-03-28] MEDS: ACETAMINOPHEN TAB 650MG DOSE (2X325MG) PO PRN (14:15)
[2023-03-28] MEDS: FUROSEMIDE 20 MG TAB PO SCH (16:28)
[2023-03-28 18:28] VITALS: BP 140/65; TEMP 98.5; O2SAT 97
[2023-03-28] MEDS: VANICREAM MOISTURIZING SKIN CREAM 113GM TUBE TOP SCH (20:27)
[2023-03-28] MEDS: SIMVASTATIN 20 MG TAB PO SCH (20:29)
[2023-03-28] MEDS: clonazePAM 1 MG TAB PO SCH (20:29)
[2023-03-29 06:33] VITALS: BP 116/65; TEMP 97.2; O2SAT 94
[2023-03-29] MEDS: INSULIN LISPRO (NovoLOG) PER UNIT SC SCH ×7 (06:38→20:20)
[2023-03-29 06:42] LABS: ALKALINE PHOSPHATASE 66 U/L (46-116); ALT/SGPT 31 U/L (7.0-40); AST/SGOT 14 U/L (<34); BILIRUBIN,TOTAL 0.3 MG/DL (0.3-1.2); BLOOD UREA NITROGEN 18 MG/DL (9-23); CALCIUM LEVEL 8.8 MG/DL (8.3-10.6); CARBON DIOXIDE LEVEL 26 MMOL/L (20-31); CHLORIDE LEVEL 102 MMOL/L (98-107); CREATININE FOR GFR 1.12 MG/DL (0.70-1.30); GLOMERULAR FILTRATION RATE > 60.0 (>49); GLUCOSE, FASTING 107 MG/DL (74-106); POTASSIUM SERUM 4.5 MMOL/L (3.5-5.1); SODIUM LEVEL 136 MMOL/L (136-145); TOTAL PROTEIN 6.6 G/DL (5.7-8.2)
[2023-03-29] MEDS: LEVEMIR (INSULIN DETEMIR) 1 UNITS/0.01ML SC SCH ×2 (09:25→20:19)
[2023-03-29] MEDS: bisoproloL fumarate 5 MG TAB PO SCH (09:25)
[2023-03-29] MEDS: lamoTRIgine 25MG TAB PO SCH (09:25)
[2023-03-29] MEDS: DOXYCYCLINE HYCLATE 100MG TABLET PO SCH ×2 (09:25→20:20)
[2023-03-29] MEDS: risperiDONE 2 MG TAB PO SCH ×2 (09:26→20:20)
[2023-03-29] MEDS: amLODIPine 5 MG TAB PO SCH (09:26)
[2023-03-29] MEDS: QUEtiapine FUMARATE 200 MG TAB PO SCH ×2 (09:26→20:20)
[2023-03-29] MEDS: FUROSEMIDE 20 MG TAB PO SCH ×2 (09:26→17:14)
[2023-03-29] MEDS: OMEPRAZOLE 20MG CAP PO SCH (09:26)
[2023-03-29] MEDS: ASPIRIN 81MG CHEW TABLET PO SCH (09:26)
[2023-03-29] MEDS: QUEtiapine FUMARATE 100 MG TAB PO SCH (12:10)
[2023-03-29 17:08] VITALS: BP 132/68; TEMP 96.9
[2023-03-29] MEDS: clonazePAM 1 MG TAB PO SCH (20:20)
[2023-03-29] MEDS: SIMVASTATIN 20 MG TAB PO SCH (20:20)
[2023-03-29] MEDS: VANICREAM MOISTURIZING SKIN CREAM 113GM TUBE TOP SCH (20:22)
[2023-03-30 06:37] VITALS: BP 145/68; TEMP 97.1; O2SAT 98
[2023-03-30] MEDS: INSULIN LISPRO (NovoLOG) PER UNIT SC SCH ×7 (06:46→21:00)
[2023-03-30] MEDS: bisoproloL fumarate 5 MG TAB PO SCH (08:43)
[2023-03-30] MEDS: risperiDONE 2 MG TAB PO SCH ×2 (08:43→20:41)
[2023-03-30] MEDS: ASPIRIN 81MG CHEW TABLET PO SCH (08:44)
[2023-03-30] MEDS: QUEtiapine FUMARATE 200 MG TAB PO SCH ×3 (08:44→20:41)
[2023-03-30] MEDS: FUROSEMIDE 20 MG TAB PO SCH ×2 (08:44→16:59)
[2023-03-30] MEDS: amLODIPine 5 MG TAB PO SCH (08:44)
[2023-03-30] MEDS: DOXYCYCLINE HYCLATE 100MG TABLET PO SCH ×2 (08:44→20:41)
[2023-03-30] MEDS: OMEPRAZOLE 20MG CAP PO SCH (08:44)
[2023-03-30] MEDS: LEVEMIR (INSULIN DETEMIR) 1 UNITS/0.01ML SC SCH ×2 (08:45→20:42)
[2023-03-30] MEDS: lamoTRIgine 25MG TAB PO SCH (08:46)
[2023-03-30] MEDS: ACETAMINOPHEN TAB 650MG DOSE (2X325MG) PO PRN ×2 (12:32→22:22)
[2023-03-30 15:17] VITALS: BP 136/60; TEMP 96.8
[2023-03-30] MEDS: diphenhydrAMINE 25MG CAP PO PRN (19:02)
[2023-03-30] MEDS: clonazePAM 1 MG TAB PO SCH (20:41)
[2023-03-30] MEDS: SIMVASTATIN 20 MG TAB PO SCH (20:41)
[2023-03-30] MEDS: VANICREAM MOISTURIZING SKIN CREAM 113GM TUBE TOP SCH (21:00)
[2023-03-31] MEDS: INSULIN LISPRO (NovoLOG) PER UNIT SC SCH ×7 (05:15→21:00)
[2023-03-31 06:51] VITALS: BP 126/83; TEMP 97.5
[2023-03-31 08:31] VITALS: BP 139/81
[2023-03-31] MEDS: QUEtiapine FUMARATE 200 MG TAB PO SCH ×3 (08:32→21:26)
[2023-03-31] MEDS: OMEPRAZOLE 20MG CAP PO SCH (08:32)
[2023-03-31] MEDS: bisoproloL fumarate 5 MG TAB PO SCH (08:32)
[2023-03-31] MEDS: amLODIPine 5 MG TAB PO SCH (08:33)
[2023-03-31] MEDS: risperiDONE 2 MG TAB PO SCH ×2 (08:33→21:26)
[2023-03-31] MEDS: lamoTRIgine 100MG TAB PO SCH (08:33)
[2023-03-31] MEDS: FUROSEMIDE 20 MG TAB PO SCH ×2 (08:33→17:00)
[2023-03-31] MEDS: DOXYCYCLINE HYCLATE 100MG TABLET PO SCH ×2 (08:33→21:26)
[2023-03-31] MEDS: ASPIRIN 81MG CHEW TABLET PO SCH (08:33)
[2023-03-31] MEDS: LEVEMIR (INSULIN DETEMIR) 1 UNITS/0.01ML SC SCH ×2 (08:34→21:27)
[2023-03-31] MEDS: ACETAMINOPHEN TAB 650MG DOSE (2X325MG) PO PRN (11:16)
[2023-03-31 18:00] VITALS: BP 143/69; TEMP 97.8
[2023-03-31] MEDS: VANICREAM MOISTURIZING SKIN CREAM 113GM TUBE TOP SCH (21:00)
[2023-03-31] MEDS: SIMVASTATIN 20 MG TAB PO SCH (21:26)
[2023-03-31] MEDS: clonazePAM 1 MG TAB PO SCH (21:26)
[2023-04-01 06:31] VITALS: BP 123/58; TEMP 97.7; O2SAT 95
[2023-04-01] MEDS: INSULIN LISPRO (NovoLOG) PER UNIT SC SCH ×7 (07:10→21:00)
[2023-04-01] MEDS: lamoTRIgine 100MG TAB PO SCH (08:42)
[2023-04-01] MEDS: QUEtiapine FUMARATE 200 MG TAB PO SCH ×3 (08:43→21:06)
[2023-04-01] MEDS: ASPIRIN 81MG CHEW TABLET PO SCH (08:44)
[2023-04-01] MEDS: FUROSEMIDE 20 MG TAB PO SCH ×2 (08:44→17:23)
[2023-04-01] MEDS: risperiDONE 2 MG TAB PO SCH ×2 (08:44→21:07)
[2023-04-01] MEDS: DOXYCYCLINE HYCLATE 100MG TABLET PO SCH ×2 (08:44→21:07)
[2023-04-01] MEDS: OMEPRAZOLE 20MG CAP PO SCH (08:45)
[2023-04-01] MEDS: LEVEMIR (INSULIN DETEMIR) 1 UNITS/0.01ML SC SCH ×2 (08:45→21:06)
[2023-04-01] MEDS: bisoproloL fumarate 5 MG TAB PO SCH (08:47)
[2023-04-01] MEDS: amLODIPine 5 MG TAB PO SCH (08:48)
[2023-04-01] MEDS ORDERED: LAMO100T80 PO (10:40)
[2023-04-01] MEDS ORDERED: RISP-9 PO (10:40)
[2023-04-01] MEDS ORDERED: OMEP-173 PO (10:40)
[2023-04-01] MEDS ORDERED: GLUC1VIA SC (10:40)
[2023-04-01] MEDS ORDERED: CLON1TAB8 PO ×2 (10:40→10:48)
[2023-04-01] MEDS ORDERED: FURO40TA2 PO (10:40)
[2023-04-01] MEDS ORDERED: ASPI-655 PO (10:40)
[2023-04-01] MEDS ORDERED: VANI1CRE5 EXT (10:40)
[2023-04-01] MEDS ORDERED: SIMV20TA22 PO (10:40)
[2023-04-01] MEDS ORDERED: QUET200T2 PO ×2 (10:40)
[2023-04-01] MEDS ORDERED: AMLO1TAB24 PO (10:40)
[2023-04-01] MEDS ORDERED: BISO5TAB14 PO (10:40)
[2023-04-01] MEDS ORDERED: NOVOINJ SC (10:40)
[2023-04-01] MEDS ORDERED: DOXY100T PO (10:40)
[2023-04-01] MEDS ORDERED: INSUDET SC (10:40)
[2023-04-01 16:32] VITALS: BP 132/63; TEMP 98.2; O2SAT 94
[2023-04-01] MEDS: diphenhydrAMINE 25MG CAP PO PRN (18:35)
[2023-04-01] MEDS: VANICREAM MOISTURIZING SKIN CREAM 113GM TUBE TOP SCH (21:00)
[2023-04-01] MEDS: clonazePAM 1 MG TAB PO SCH (21:06)
[2023-04-01] MEDS: SIMVASTATIN 20 MG TAB PO SCH (21:07)
[2023-04-02 06:27] VITALS: BP 133/64; TEMP 98; O2SAT 94
[2023-04-02] MEDS: INSULIN LISPRO (NovoLOG) PER UNIT SC SCH ×4 (06:33→12:20)
[2023-04-02 08:22] VITALS: BP 154/74
[2023-04-02 08:23] VITALS: BP 154/74
[2023-04-02] MEDS: amLODIPine 5 MG TAB PO SCH (08:23)
[2023-04-02] MEDS: bisoproloL fumarate 5 MG TAB PO SCH (08:23)
[2023-04-02] MEDS: lamoTRIgine 100MG TAB PO SCH (08:23)
[2023-04-02] MEDS: FUROSEMIDE 20 MG TAB PO SCH (08:24)
[2023-04-02] MEDS: OMEPRAZOLE 20MG CAP PO SCH (08:24)
[2023-04-02] MEDS: QUEtiapine FUMARATE 200 MG TAB PO SCH ×2 (08:24→12:21)
[2023-04-02] MEDS: DOXYCYCLINE HYCLATE 100MG TABLET PO SCH (08:24)
[2023-04-02] MEDS: risperiDONE 2 MG TAB PO SCH (08:25)
[2023-04-02] MEDS: ASPIRIN 81MG CHEW TABLET PO SCH (08:25)
[2023-04-02] MEDS: LEVEMIR (INSULIN DETEMIR) 1 UNITS/0.01ML SC SCH (08:27)
== END 2023-04-02 14:17 | disposition home or self-care (01) | DRG 753 ==
LOC: M PSY 03-26 17:29
PROVIDERS: ADMIT Student in an Organized Health Care Education/Training Program; ATTEND Student in an Organized Health Care Education/Training Program
DX: F31.9 Bipolar disorder, unspecified (principal); E87.0 Hyperosmolality and hypernatremia; E11.621 Type 2 diabetes mellitus with foot ulcer; L97.529 Non-pressure chronic ulcer of other part of left foot with unspecified severity; L97.519 Non-pressure chronic ulcer of other part of right foot with unspecified severity; F17.210 Nicotine dependence, cigarettes, uncomplicated; E78.5 Hyperlipidemia, unspecified; K21.9 Gastro-esophageal reflux disease without esophagitis; I10 Essential (primary) hypertension; I89.0 Lymphedema, not elsewhere classified; Z79.899 Other long term (current) drug therapy; Z79.4 Long term (current) use of insulin; Z79.82 Long term (current) use of aspirin; Z88.8 Allergy status to other drugs, medicaments and biological substances; Z86.14 Personal history of Methicillin resistant Staphylococcus aureus infection; Z91.148 Patient's other noncompliance with medication regimen for other reason